=== PATIENT | male | born 1960 | race African-American/Black ===

== ENCOUNTER 2023-08-06 04:24 | Emergency (ER) | payer BC ==
[2023-08-06 05:00] VITALS: BP 165/74; PULSE 68; RESP 18; TEMP 97.5; BMI 29.5
[2023-08-06] MEDS ORDERED: ACETAMINOPHEN 325 MG TABLET (FP) ONE (05:16)
[2023-08-06] MEDS ORDERED: LIDOCAINE 4% PATCH TP ONE (05:16)
[2023-08-06] MEDS: LIDOCAINE 5% TOPICAL PATCH TP ONE (05:24)
[2023-08-06] MEDS: ACETAMINOPHEN 325 MG TABLET (FP) PO ONE (05:25)
[2023-08-06] MEDS ORDERED: LIDOCAINE PATCH REMOVAL MC ONE (17:00)
== END 2023-08-06 05:57 | disposition home or self-care (01) ==
LOC: JER 04:24
DX: M12.811 Other specific arthropathies, not elsewhere classified, right shoulder (principal); M25.511 Pain in right shoulder
CPT/HCPCS: 73030-TC-RT-FY; 99283-25